=== PATIENT | female | born 1960 | race Caucasian/White ===

== ENCOUNTER → 2021-10-23 | Day surgery (SDC) | payer OTHER ==
[~2021-10-23] MED LIST: ACETAMINOPHEN 1000 MG/100 ML 100 ML IV ONE; ANTIOXIDANT SO1 EACH PO; BUPIVACAINE 0.25% 30ML SDV ONE; CALCIUM MAGNES1 EAC1 PO; COLLAGEN PEPTIDES PO; COQ1050 MG PO; CRANBERRY200 MG PO; CRESTOR10 MG PO; DEXAMETHASONE SOD PHOS INJ 4 MG/ML SDV ONE; EPHEDRINE SULFATE INJ 50 MG/ML VIAL ONE; FENTANYL CITRATE/PF 100MCG/2 ML INJ ONE; FERROUS SULFAT324 MG PO; KETOROLAC TROMETHAMINE 30 MG/ML VIAL ONE; LIDOCAINE 1% W/EPINEPHRINE 20 ML VIAL ONE; LIDOCAINE HCL 1% LOCAL INJ 20 ML VIAL ONE; LIDOCAINE HCL 2% LOCAL INJ 5 ML SDV VIAL INJ ONE; MELOXICAM7.5 MG PO; MIDAZOLAM HCL 2 MG/2 ML VIAL ONE; MULTI-VITAMIN1 EACH PO; OMEGA 3 1,0001 EACH PO; ONDANSETRON HCL INJ 2MG/ML 2ML 2 MG/ML VIAL ONE; POTASSIUM99 M1 PO; POVIDONE IODINE 0.05% 0.05 % ML PO ONE; PROPOFOL IV EMULSION 10 MG/ML 20 ML VIAL ONE; ROPIVACAINE 0.5% 5 MG/ML 30 ML SDV ONE; SEVOFLURANE INHAL SOLN 250 ML PEN BTL ONE; VITAMIN D325 MCG PO; VITAMIN K2100 MCG PO
[2021-10-23 16:25] VITALS: BP 131/74
== END | disposition home or self-care (01) ==
LOC: OR 10:39
PROVIDERS: ATTEND Orthopaedic Surgery
DX: S83.231A Complex tear of medial meniscus, current injury, right knee, initial encounter (principal); S83.281A Other tear of lateral meniscus, current injury, right knee, initial encounter; D75.89 Other specified diseases of blood and blood-forming organs; M22.41 Chondromalacia patellae, right knee; M67.51 Plica syndrome, right knee; M23.41 Loose body in knee, right knee; U07.1 COVID-19; E78.5 Hyperlipidemia, unspecified; X58.XXXA Exposure to other specified factors, initial encounter; Z88.6 Allergy status to analgesic agent; Z01.810 Encounter for preprocedural cardiovascular examination; Z79.899 Other long term (current) drug therapy
CPT/HCPCS: 76000; 93005; C1713; J0690; J1100; J1885; J2001; J2250; J2405; J2795; J3010; U0002